=== PATIENT | female | born 1960 | race Caucasian/White ===

== ENCOUNTER 2024-10-05 18:42 | Emergency (ER) | payer OTHER, BC ==
[~2024-10-05] VITALS: Ht 167.6 cm; Wt 68.6 kg
[2024-10-05 18:58] LABS: BASOPHILS 1.3 % (0-2); EOSINOPHILS 11.7 % (0-6); HEMATOCRIT 40.4 % (35.0-50.0); HEMOGLOBIN 13.9 g/dL (12.0-18.0); LYMPHOCYTES 32.9 % (24-44); MCH 34.7 (27-36); MCHC 34.5 g/dl (30-36); MCV 100.6 fl (81-99); MONOCYTES 6.7 % (0-12); NEUTROPHILS 47.4 % (39-80); PLATELET COUNT 195 K/uL (140-440); RBC 4.01 M/ul (4.3-5.7); RDW 12.1 (10.5-15.0)
[2024-10-05] MEDS ORDERED: HYDROmorphone HCL 1 MG/ML SYR IV ONE (19:00)
[2024-10-05] MEDS ORDERED: CEFAZOLIN SODIUM 2 GM/20 ML SYR IV ONE (19:00)
[2024-10-05] MEDS ORDERED: ondansetron HCL 4 MG/2 ML VIAL IV ONE (19:00)
[2024-10-05] MEDS ORDERED: LACTATED RINGER'S 1,000 ML IV ONE (19:00)
[2024-10-05 19:10] LABS: ALBUMIN 4.1 g/dL (3.4-5.0); ALBUMIN/GLOBULIN RATIO 1.21 (1.1-2.4); ANION GAP 14.7 (7-21); BILIRUBIN, TOTAL 0.5 ng/dL (0.2-1.0); BUN/CREATININE RATIO 22.68 (6.0-28.6); CALCIUM 9.4 mg/dL (8.5-10.1); CREATININE, SERUM 0.97 mg/dL (0.55-1.02); POTASSIUM 3.7 mmol/L (3.5-5.1); PROTEIN, TOTAL 7.5 g/dL (6.4-8.2)
[2024-10-05 19:30] LABS: ABO O; RH POSITIVE
[2024-10-05 19:31] LABS: ANTIBODY SCREEN NEGATIVE
[2024-10-05] MEDS ORDERED: HYDROmorphone HCL 1 MG/ML SYR IV PRN (20:00)
[2024-10-05] MEDS ORDERED: PROCHLORPERAZINE EDISYLATE 10 MG/2 ML VIAL IV ONE (20:00)
[2024-10-05 21:28] LABS: BILIRUBIN, URINE NEGATIVE (negative); BLOOD/HGB, URINE SMALL (Negative); KETONE, URINE NEGATIVE (Negative); LEUK ESTERASE, URINE NEGATIVE (negative); NITRITE, URINE NEGATIVE (negative)
[2024-10-05] MEDS ORDERED: CEFTRIAXONE/SODIUM CHLORIDE 2 GM/100 ML PIGGYBACK IV ONE (21:30)
[2024-10-05] MEDS ORDERED: ETOMIDATE 40 MG/20 ML VIAL IV ONE (21:30)
[2024-10-05] MEDS ORDERED: DIPHTH,PERTUSS(ACELL),TET VAC 0.5 ML SYRINGE IM ONE (21:30)
[2024-10-05 21:37] LABS: BACTERIA, URINE NONE SEEN /hpf (negative); CASTS, URINE NONE SEEN \\lpf; COLLECTION TYPE, URINE CLEAN CATCH; CRYSTALS, URINE NONE SEEN (0-1+); EPITHELIAL CELLS, URINE SQUAMOUS 1+ /lpf (0-1+); RED BLOOD CELLS, URINE 0-1 /hpf (0-5); REFLEX CULTURE, URINE No (No)
[2024-10-05 21:42] LABS: AMPHETAMINES, URINE NEGATIVE (NEGATIVE); BARBITURATES, URINE NEGATIVE (NEGATIVE); BENZODIAZEPINE, URINE NEGATIVE (NEGATIVE); BUPRENORPHINE, URINE NEGATIVE (NEGATIVE); CANNABINOID, URINE NEGATIVE (NEGATIVE); COCAINE, URINE NEGATIVE (NEGATIVE); ECSTASY, URINE NEGATIVE (NEGATIVE); FENTANYL, URINE POSITIVE (NEGATIVE); METHADONE, URINE NEGATIVE (NEGATIVE); OPIATES, URINE NEGATIVE (NEGATIVE); OXYCODONE, URINE NEGATIVE (NEGATIVE); PHENCYCLIDINE, URINE NEGATIVE (NEGATIVE)
[2024-10-05] MEDS ORDERED: ETOMIDATE 40 MG/20 ML VIAL IV PRN ×2 (23:15)
[2024-10-05 23:23] VITALS: BP 112/81
== END 2024-10-05 23:23 | disposition short-term general hospital (02) ==
LOC: ED 18:42
PROVIDERS: Emergency Medicine
DX: S12.590A Other displaced fracture of sixth cervical vertebra, initial encounter for closed fracture (principal); S12.490A Other displaced fracture of fifth cervical vertebra, initial encounter for closed fracture; S12.690A Other displaced fracture of seventh cervical vertebra, initial encounter for closed fracture; S22.22XA Fracture of body of sternum, initial encounter for closed fracture; S62.610B Displaced fracture of proximal phalanx of right index finger, initial encounter for open fracture; S63.261A Dislocation of metacarpophalangeal joint of left index finger, initial encounter; S66.120A Laceration of flexor muscle, fascia and tendon of right index finger at wrist and hand level, initial encounter; S66.122A Laceration of flexor muscle, fascia and tendon of right middle finger at wrist and hand level, initial encounter; S51.811A Laceration without foreign body of right forearm, initial encounter; Z88.2 Allergy status to sulfonamides; V49.50XA Passenger injured in collision with unspecified motor vehicles in traffic accident, initial encounter
CPT/HCPCS: 36415; 51702; 70450; 71260; 72125; 72128; 72131; 73130; 74177; 80053; 80307; 81001; 82553; 83605; 85025; 86850; 86900; 86901; 99285-25; G0480; J0690; J0696; J0780; J1171; J2405; J7121; Q9967